=== PATIENT | male | born 1985 | race Caucasian/White ===

== ENCOUNTER 2018-12-20 13:55 | Emergency (ER) | payer OTHER ==
[~2018-12-20] VITALS: Ht 170.2 cm; Wt 97.1 kg
[2018-12-20 14:08] VITALS: BP 133/94
== END 2018-12-20 15:03 | disposition home or self-care (01) ==
LOC: ED 13:55
DX: T78.40XA Allergy, unspecified, initial encounter (principal); X58.XXXA Exposure to other specified factors, initial encounter

== ENCOUNTER 2020-03-27 12:22 | Emergency (ER) | payer OTHER ==
[~2020-03-27] VITALS: Ht 167.6 cm; Wt 97.1 kg
[2020-03-27 12:25] VITALS: Ht 167.6 cm; Wt 97.1 kg
[2020-03-27 12:41] VITALS: BP 139/84
== END 2020-03-27 14:12 | disposition home or self-care (01) ==
LOC: ED 12:22
DX: S61.210A Laceration without foreign body of right index finger without damage to nail, initial encounter (principal); W26.0XXA Contact with knife, initial encounter; Y93.89 Activity, other specified; Y92.89 Other specified places as the place of occurrence of the external cause; Y99.8 Other external cause status
CPT/HCPCS: 90715; J2001